=== PATIENT | male | born 1955 | race Caucasian/White ===

== ENCOUNTER 2020-01-16 06:15 | Day surgery (SDC) | payer OTHER ==
[2020-01-11 12:07] LABS: Urine Appearance CLEAR; Urine Bilirubin NEGATIVE (NEG); Urine Blood NEGATIVE (NEG); Urine Color YELLOW; Urine Glucose 3+ (NEG); Urine Protein NEGATIVE (NEG); Urine Specific Gravity >=1.030 (1.005-1.030); Urine Urobilinogen 0.2 mg/dL (0.2-1.0)
[2020-01-11 12:09] LABS: Urine Microscopic Reflex NO UMIC
[2020-01-11 12:13] LABS: Protime INR 0.92
[2020-01-11 12:28] LABS: Albumin 3.8 g/dL (3.4-5.0); Bilirubin Total 0.7 mg/dL (0.2-1.0); Potassium 4.3 mmol/L (3.5-5.1); Protein, Total 7.6 g/dL (6.4-8.2)
[2020-01-11 12:29] LABS: Absolute Lymphocytes (CBC) 1.9 K/uL (0.7-4.9); Basophils % 0.8 % (0-1.3); Hematocrit 46.6 % (39.6-49.0); MPV 9.1 fL (7.6-11.3); RBC Red Blood Cell Count 5.23 M/uL (4.33-5.43)
--- OUTSIDE RECORDS SUMMARY | 2020-01-16 06:27 | XMS REPORT ---
:1955 Author Organization eClinicalWorks Care Team Providers Name Role Phone Roxi Wright Provider Role Unavailable Allergies, Adverse Reactions, Alerts Substance Reaction Event Type N.K.D.A. Info Not Available Non Drug Allergy Problems Problem Type Condition Code Onset Dates Condition Statu s Assessment Phimosis of penis N47.1 Active Problem Balanitis N48.1 Active Assessment Balanitis N48.1 Active Assessment Screening PSA (prostate specific Z12.5 Active antigen) Assessment Redundant foreskin N47.8 Active Medications Medication Code Code Instructions Start End Status Dosage System Date Date Atorvastatin [facility] 22855614160 40 MG Orally Active 1 tablet Calcium Once a day Brilinta ND 96653709954 90 MG Orally Active 1 tabl et Twice a day Losartan ND 65208144189 100 MG Orally Active 1 tab let Potassium Once a day Metoprolol ND 84486786706 25 MG Orally Active 1 ca psule Succinate Once a day Metformin HCl ND 18819802498 1000 MG Orally Active 1 tablet Once a day with a meal -81 NDC 0 Active not defined Results No Known Results Summary Purpose eClinicalWorks Submission
--- OUTSIDE RECORDS SUMMARY | 2020-01-16 06:27 | XMS REPORT | Continuity of Care Document ---
:1955 Author Organization [facility] t Address [address] [place] [address] Care Team Providers Name Role Phone Unavailable Unavailable Unavailable Payers Payer Name Policy Type Policy Number Effective Date Expiration Date S ource Problems Condition Condition Condition Status Onset Resolution Last Treating Co mments Source Name Details Category Date Date Treatment Clinician Date Balanitis Balanitis Problem Active [facility] Allergies, Adverse Reactions, Alerts Allergy Allergy Status Severity Reaction(s) Onset Inactive Treating Comm ents Source Name Type Date Date Clinician No Known DA Active U 2018-07 [facility] 08-13 [facility]: [facility] Medications Ordered Filled Start Stop Current Ordering Indication Dosage Frequency Signature Comments Components Source Medication Medication Date Date Medication? Clinician (SIG) Name Name Nino Oneill Yes Roxi [address] [facility] [place] [facility] Atorvastati Atorvastati Yes Roxi [address] [facility] n Calcium n Calcium [facility] Aspir-81 Aspir-81 Yes Roxi not [facility] Metformin Metformin Yes Roxi [address] [facility] [address] HCl HCl [place] [facility] a [facility] Losartan Losartan Yes Roxi [address] Potassium Potassium [facility] Metoprolol Metoprolol Yes Roxi [address] [address] Succinate Succinate [facility] Asprin Ec Asprin Ec No 1 Q1D Asprin Ec [place] Low Dose 81 Low Dose 81 Low Dose da mg mg 81 mg Medical tablet,mindy tablet,mindy tablet,del Group yed release yed release ayed Take 1 Take 1 release tablet tablet Take 1 every day every day tablet by oral by oral every day route. route. by oral route. atorvastati atorvastati No 1 Q1D atorvastat [place] n 40 mg n 40 mg in 40 mg da tablet Take tablet Take tablet Medical 1 tablet 1 tablet Take 1 Group every day every day tablet by oral by oral every day route. route. by oral route. Brilinta 90 Brilinta 90 No 1 Q1D Brilinta [place] mg tablet mg tablet 90 mg da Take 1 Take 1 tablet Medical tablet tablet Take 1 Group every day every day tablet by oral by oral every day route. route. by oral route. losartan losartan No 1 Q1D losartan [place] 100 mg 100 mg 100 mg da tablet Take tablet Take tablet Medical 1 tablet 1 tablet Take 1 Group every day every day tablet by oral by oral every day route. route. by oral route. metoprolol metoprolol No metoprolol [place] succinate succinate succinate da 25 mg take 25 mg take 25 mg take Medical once a day once a day once a day Group Vital Signs Vital Name Observation Time Observation Value Comments Source BP Diastolic 2018-06-17 00:00:00 94 mm[Hg] [facility] Height 2018-06-17 00:00:00 5.1 [in_i] [facility] BMI (Body Mass 2018-06-17 00:00:00 7492.1 kg/m2 [facility] Medical Index) Group BP Systolic 2018-06-17 00:00:00 162 mm[Hg] [facility] Body Weight 2018-06-17 00:00:00 277 [lb_av] [facility] Procedures Procedure Date / Time Performed Performing Clinician Valerie rueda US, renal 2018-06-17 00:00:00 Riccardo Yun Plan of Care Planned Activity Planned Date Details Comments Source Diagnostic Test 2018-06-17 urinalysis, dipstick Rubin connor [facility] Pending 00:00:00 [code = urinalysis, Group dipstick] Diagnostic Test 2018-06-17 cytology, urine [code [facility] Pending 00:00:00 = cytology, urine] Group Diagnostic Test 2018-06-17 culture, urine + [facility] Pending 00:00:00 sensitivity [code = Group culture, urine + sensitivity] Encounters Start End Encounter Admission Attending Care Care Encounter Source Date/Time Date/Time Type Type Clinicians Facility Department ID 2019-12-19 2019-12-19 [place] [id number] [facility] 15:10:00 15:10:00 t Specialty/U [facility] Outpat[facility] ent Clinics 2019-12-19 2019-12-19 [facility] [id number] [address] 09:00:00 09:00:00 t Specialty/U [facility] - [facility] l Clinic Outpati ent Clinics 2019-08-25 2019-08-25 [facility] [id number] [facility] [address] 14:39:00 14:39:00 t Specialty/U [facility] - [facility] l Clinic Outpati ent Clinics 2019-08-25 2019-08-25 [facility] [id number] [address] 08:00:00 08:00:00 t Specialty/U [facility] - [facility] 2018-06-17 2018-06-17 Art[facility] [place] - [id number] [facility] 00:00:00 00:00:00 Discovery sherice Wood MD: [address] [place] [address] Jamal Millard - [address], [place] [address] , Ph. Results Test Description Test Time Test Comments Results Result Comments Source CBC W/AUTO DIFF 2019-06-13 05:39:00 Test Item Value Reference Range Interpretation Comme nts WHITE BLOOD CELL (test code = WBC) 8.6 x10 3/uL 4.8-10.8 N RED BLOOD CELL (test code = RBC) 4.70 x10 6/uL 4.70-6.10 N HEMOGLOBIN (test code = HGB) 14.3 g/dL 14.5-20 L HEMATOCRIT (test code = HCT) 42.0 % 42.0-52.0 N MEAN CELL VOLUME (test code = MCV) 89.4 fL 80.0-94.0 N MEAN CELL HGB (test code = MCH) 30.4 pg 27-31 N MEAN CELL HGB CONCENTRATION (test code = MCHC) 34.0 G/DL 33-36.5 N RED CELL DISTRIBUTION WIDTH (test code = RDW) 12.0 % 12.9-16. 9 L PLATELET COUNT (test code = PLT) 180 150-440 N MEAN PLATELET VOLUME (test code = MPV) 10.6 fL 8.9-12.4 N NEUTROPHIL % (test code = NT%) 66.6 % 42.2-75.2 N LYMPHOCYTE % (test code = LY%) 22.7 % 20.5-51.1 N MONOCYTE % (test code = MO%) 8.5 % 1.7-9.3 N EOSINOPHIL % (test code = EO%) 1.4 % 0.0-7.0 N BASOPHIL % (test code = BA%) 0.6 % 0-2.5 N NEUTROPHIL # (test code = NT#) 5.69 x10 3/uL 1.80-7.70 N LYMPHOCYTE # (test code = LY#) 1.94 x10 3/uL 1.00-4.80 N MONOCYTE # (test code = MO#) 0.73 x10 3/uL 0.00-0.80 N EOSINOPHIL # (test code = EO#) 0.12 x10 3/uL 0.00-0.45 N BASOPHIL # (test code = BA#) 0.05 x10 3/uL 0.0-0.20 N BASIC METABOLIC [id number] 05:20:00 Test Item Value Reference Range Interpretation Comments SODIUM (test code 134 MMOL/L 136-143 L = NA) POTASSIUM (test 4.5 MMOL/L 3.5-5.1 N code = K) CHLORIDE (test 99 MMOL/L 98-107 N code = CL) CARBON DIOXIDE 25 mmol/L 24-31 N (test code = CO2) GLUCOSE (test code 247 mg/dL 70-104 H = GLU) BLOOD UREA 11.0 MG/DL 7.0-21.0 N NITROGEN (test code = BUN) GLOMERULAR >=60 max >60 The estimated FILTRATION RATE estimate glomerular (test code = GFR) filtration rate is computed usingpatient ra ce, age (>18), sex, and serum creatinin e. If anyof the neede d data elements a re missing the Laboratory alena ot compute an estimation of t he glomerular filtration rate . CREATININE (test 0.8 mg/dL 0.8-1.5 N code = CREAT) CALCIUM (test code 8.9 mg/dL 8.8-10.2 N = CA) [id number] 11:30:00 Test Item Value Reference Range Interpretation Comments GLUBED (test code = GLUBED) 255 MG/DL 70-105 H COAGULATION TIME [id number] 08:59:00 Test Item Value Reference Range Interpretation Comments COAGULATION TIME ACTIVATED (test 252 SECONDS 74-137 H code = ACT) COAGULATION TIME [id number] 08:30:00 Test Item Value Reference Range Interpretation Comments COAGULATION TIME ACTIVATED (test 241 SECONDS 74-137 H code = ACT) BASIC METABOLIC [id number] 07:39:00 Test Item Value Reference Range Interpretation Comments SODIUM (test code 133 MMOL/L 136-143 L = NA) POTASSIUM (test 4.3 MMOL/L 3.5-5.1 N code = K) CHLORIDE (test 98 MMOL/L 98-107 N code = CL) CARBON DIOXIDE 23 mmol/L 24-31 L (test code = CO2) GLUCOSE (test code 275 mg/dL 70-104 H = GLU) BLOOD UREA 14.2 MG/DL 7.0-21.0 N NITROGEN (test code = BUN) GLOMERULAR >=60 max >60 The estimated FILTRATION RATE estimate glomerular (test code = GFR) filtration rate is computed usingpatient ra ce, age (>18), sex, and serum creatinin e. If anyof the neede d data elements a re missing the Laboratory alena ot compute an estimation of t he glomerular filtration rate . CREATININE (test 0.8 mg/dL 0.8-1.5 N code = CREAT) CALCIUM (test code 9.3 mg/dL 8.8-10.2 N = CA) CBC W/AUTO [id number] 07:08:00 Test Item Value Reference Range Interpretation Comments WHITE BLOOD CELL (test code = 8.2 x10 3/uL 4.8-10.8 N WBC) RED BLOOD CELL (test code = 4.95 x10 6/uL 4.70-6.10 N RBC) HEMOGLOBIN (test code = HGB) 14.9 g/dL 14.5-20 N HEMATOCRIT (test code = HCT) 43.8 % 42.0-52.0 N MEAN CELL VOLUME (test code = 88.5 fL 80.0-94.0 N MCV) MEAN CELL HGB (test code = MCH) 30.1 pg 27-31 N MEAN CELL HGB CONCENTRATION 34.0 G/DL 33-36.5 N (test code = MCHC) RED CELL DISTRIBUTION WIDTH 12.1 % 12.9-16.9 L (test code = RDW) PLATELET COUNT (test code = 191 150-440 N PLT) MEAN PLATELET VOLUME (test code 10.4 fL 8.9-12.4 N = MPV) NEUTROPHIL % (test code = NT%) 67.4 % 42.2-75.2 N LYMPHOCYTE % (test code = LY%) 22.8 % 20.5-51.1 N MONOCYTE % (test code = MO%) 6.9 % 1.7-9.3 N EOSINOPHIL % (test code = EO%) 2.2 % 0.0-7.0 N BASOPHIL % (test code = BA%) 0.5 % 0-2.5 N NEUTROPHIL # (test code = NT#) 5.51 x10 3/uL 1.80-7.70 N LYMPHOCYTE # (test code = LY#) 1.86 x10 3/uL 1.00-4.80 N MONOCYTE # (test code = MO#) 0.56 x10 3/uL 0.00-0.80 N EOSINOPHIL # (test code = EO#) 0.18 x10 3/uL 0.00-0.45 N BASOPHIL # (test code = BA#) 0.04 x10 3/uL 0.0-0.20 N
--- OUTSIDE RECORDS SUMMARY | 2020-01-16 06:27 | XMS REPORT ---
:1955 Author Organization eClinicalWorks Care Team Providers Name Role Phone Roxi Wright Provider Role Unavailable Allergies No Known Allergies Problems Problem Type Condition Code Onset Dates Condition Statu s Problem Balanitis N48.1 Active Medications No Known Medications Results No Known Results Summary Purpose eClinicalWorks Submission
[2020-01-16] MEDS ORDERED: NA CHLORIDE 0.9% 1,000 ML ONE ×2 (06:50→09:35)
[2020-01-16] MEDS ORDERED: FENTANYL CITR 100 MCG/2 ML ONE ×2 (07:16→08:12)
[2020-01-16] MEDS ORDERED: MIDAZOLAM HCL 2 MG/2 ML INJ ONE (07:16)
[2020-01-16] MEDS ORDERED: propofoL 200 MG/20 ML VIAL IV ONE (07:16)
[2020-01-16] MEDS ORDERED: dexAMETHasone 10 MG/ML VIAL ONE ×2 (07:16→07:17)
[2020-01-16] MEDS ORDERED: LIDOCAINE 2% MPF 5 ML VIAL ONE (07:17)
[2020-01-16] MEDS ORDERED: BACITRACIN OINTMENT 15 GM TUBE TOP ONE (07:20)
[2020-01-16] MEDS ORDERED: BUPIVACAINE 0.25% PF 10 ML VIAL ONE (07:20)
[2020-01-16] MEDS: CEFTRIAXONE/SWI 1gm 1 GM/10 ML SYR IV SCH ×2 (07:30→07:40)
[2020-01-16] MEDS ORDERED: INSULIN -REGULAR HUMAN 50 UNIT/0.5 ML ML ONE ×2 (07:30→09:33)
[2020-01-16] MEDS ORDERED: KETOROLAC 30 MG/ML INJ ONE (08:43)
[2020-01-16] MEDS ORDERED: ONDANSETRON 4 MG/2 ML VIAL ONE (09:32)
[2020-01-16 10:13] VITALS: TEMP 97.1
[2020-01-16 11:14] VITALS: BP 107/62; O2SAT 97
== END 2020-01-16 10:50 | disposition home or self-care (01) ==
LOC: OR 06:15
PROVIDERS: ATTEND Internal Medicine Hematology & Oncology
PROC: 0VTTXZZ Resection of Prepuce, External Approach (ICD-10-PCS; principal; 2020-01-16 07:30)
DX: N47.1 Phimosis (principal); N47.8 Other disorders of prepuce; N48.1 Balanitis; E11.9 Type 2 diabetes mellitus without complications; I10 Essential (primary) hypertension; I25.10 Atherosclerotic heart disease of native coronary artery without angina pectoris; Z11.59 Encounter for screening for other viral diseases; Z79.82 Long term (current) use of aspirin; Z79.02 Long term (current) use of antithrombotics/antiplatelets; Z95.5 Presence of coronary angioplasty implant and graft
CPT/HCPCS: 93005; 85025; 36415; 85610; 82947 ×2; 88304; 85730; 81003; 83036; 80053; 54161; U0002; J2704; J2250; J3010 ×2; J1100; J0696; J7030 ×2; J2405

== ENCOUNTER 2021-02-06 21:14 | Emergency (ER) | payer OTHER ==
--- OUTSIDE RECORDS SUMMARY | 2021-02-06 21:18 | XMS REPORT | Continuity of Care Document ---
:1955 Author Organization [facility] t Address [address] [place] [address] Care Team Providers Name Role Phone Unavailable Unavailable Unavailable Payers Payer Name Policy Type Policy Number Effective Date Expiration Date S ource Problems Condition Condition Condition Status Onset Resolution Last Treating Co mments Source Name Details Category Date Date Treatment Clinician Date Balanitis Balanitis Diagnosis Active [facility] Phimosis Phimosis Diagnosis Active [facility] Screening Screening Diagnosis Active [facility] PSA PSA [facility] - (prostate (prostate Sukhdev nikos specific specific l antigen) antigen) Outpat i ent Clinics Redundant Redundant Diagnosis Active [facility] foreskin foreskin [facility] Allergies, Adverse Reactions, Alerts Allergy Allergy Status Severity Reaction(s) Onset Inactive Treating Comm ents Source Name Type Date Date Clinician No Known DA Active U 2018-07 [facility] Allergie 08-13 [facility] 00:00: [facility] Medications Ordered Filled Start Stop Current Ordering Indication Dosage Frequency Signature Comments Components Source Medication Medication Date Date Medication? Clinician (SIG) Name Name Asprin Ec Asprin Ec No 1 Q1D Asprin Ec [place] Low Dose 81 Low Dose 81 Low Dose da mg mg 81 mg Medical tablet,mindy tablet,mindy tablet,del Group yed release yed release ayed Take 1 Take 1 release tablet tablet Take 1 every day every day tablet by oral by oral every day route. route. by oral route. Brilinta Brilinta Yes Roxi [address] [facility] atorvastati atorvastati No 1 Q1D atorvastat [place] n 40 mg n 40 mg in 40 mg da tablet Take tablet Take tablet Medical 1 tablet 1 tablet Take 1 Group every day every day tablet by oral by oral every day route. route. by oral route. Atorvastati Atorvastati Yes Roxi [address] n Calcium n Calcium Adriana L [facility] Brilinta 90 Brilinta 90 No 1 Q1D Brilinta [place] mg tablet mg tablet 90 mg da Take 1 Take 1 tablet Medical tablet tablet Take 1 Group every day every day tablet by oral by oral every day route. route. by oral route. Aspir-81 Yes Roxi not [facility] [place] defined [facility] losartan losartan No 1 Q1D losartan [place] 100 mg 100 mg 100 mg da tablet Take tablet Take tablet Medical 1 tablet 1 tablet Take 1 Group every day every day tablet by oral by oral every day route. route. by oral route. Metformin Metformin Yes Roxi [address] HCl HCl [place] [facility] metoprolol metoprolol No metoprolol [place] succinate succinate succinate da 25 mg take 25 mg take 25 mg take Medical once a day once a day once a day Group Losartan Losartan Yes Roxi [address] [facility]assium [facility] Met[facility]ol Metoprolol Yes Roxi [address] Succinate Succinate [facility] Vital Signs Vital Name Observation Time Observation Value Comments Source BP Diastolic 2018-06-17 00:00:00 94 mm[Hg] [facility] Height 2018-06-17 00:00:00 5.1 [in_i] [facility] BMI (Body Mass 2018-06-17 00:00:00 7492.1 kg/m2 [facility] Medical Index) Group BP Systolic 2018-06-17 00:00:00 162 mm[Hg] [facility] Body Weight 2018-06-17 00:00:00 277 [lb_av] [facility] Procedures Procedure Date / Time Performed Performing Clinician [facility] e US, renal 2018-06-17 00:00:00 [place] [facility] Plan of Care Planned Activity Planned Date Details Comments Source Diagnostic Test 2018-06-17 urinalysis, dipstick [facility] Pending 00:00:00 [code = urinalysis, Group dipstick] Diagnostic Test 2018-06-17 cytology, urine [code [facility] Pending 00:00:00 = cytology, urine] Group Diagnostic Test 2018-06-17 culture, urine + [facility] Pending 00:00:00 sensitivity [code = Group culture, urine + sensitivity] Encounters Start End Encounter Admission Attending Care Care Encounter Source Date/Time Date/Time Type Type Clinicians Facility Department ID 2020-02-12 2020-02-12 Outpatient Jennifer Rodriguezt [id number] [facility] 09:15:00 09:15:00 t Specialty/U [facility] kes - [facility] 2020-01-29 2020-01-29 Outpatient [place] [facility] [id number] [facility] 13:00:00 13:00:00 t Specialty/U Destinee kes - [facility] 2019-12-19 2019-12-19 [facility] [id number] [facility] 15:10:00 15:10:00 t Specialty/U Destinee kes - Specialty [facility]y [facility] 2019-12-19 2019-12-19 Outpatient [facility] [id number] [facility] 09:00:00 09:00:00 t Specialty/U Destinee kes - Specialty rology [facility] /Urology Clinic l Clinic Outpati ent Clinics 2019-08-25 2019-08-25 [place] [facility] [place] [id number] [facility] 14:39:00 14:39:00 t Specialty/U Destinee kes - Specialty rology [facility] 2019-08-25 2019-08-25 [place] [id number] 08:00:00 08:00:00 t Specialty/U Destinee kes - Specialty rology [facility] 2018-06-17 2018-06-17 Arturo JOHNSON [place] - [id number] [facility] 00:00:00 00:00:00 Discovery sherice Wood MD: [address] [place] [address] [facility] - [address], [place] [address] , Ph. Results Test Description Test Time [...] 0.05 x10 3/uL 0.0-0.20 N BASIC METABOLIC [id number] 05:20:00 Test Item Value Reference Range Interpretation [...] code 8.9 mg/dL 8.8-10.2 N = CA) [id number] 11:30:00 Test Item Value Reference Range Interpretation Comments GLUBED (test code = GLUBED) 255 MG/DL 70-105 H COAGULATION TIME [id number] 08:59:00 Test Item Value Reference Range Interpretation Comments COAGULATION TIME ACTIVATED (test 252 SECONDS 74-137 H code = ACT) COAGULATION TIME [id number] 08:30:00 Test Item Value Reference Range Interpretation Comments COAGULATION TIME ACTIVATED (test 241 SECONDS 74-137 H code = ACT) BASIC METABOLIC [id number] 07:39:00 Test Item Value Reference Range Interpretation [...] mg/dL 8.8-10.2 N = CA) CBC W/AUTO [id number] 07:08:00 Test Item Value Reference Range Interpretation [...]
[2021-02-07 01:50] LABS: Absolute Lymphocytes (CBC) 1.2 K/uL (0.7-4.9); Basophils % 0.8 % (0-1.3); Hematocrit 43.9 % (39.6-49.0); Lymphocytes % 16.4 % (15.3-44.8); MPV 8.7 fL (7.6-11.3); RBC Red Blood Cell Count 4.91 M/uL (4.33-5.43)
[2021-02-07 01:56] LABS: Protime INR 1.15
[2021-02-07 02:28] LABS: Bilirubin Direct 0.4 mg/dL (0-0.2); Bilirubin Total 1.2 mg/dL (0.2-1.0); C-Reactive Protein 89.3 mg/L (<3.00); Ferritin 817.2 ng/mL (26-388); Magnesium 1.8 mg/dL (1.8-2.4); Potassium 3.8 mmol/L (3.5-5.1); Protein, Total 6.9 g/dL (6.4-8.2); Troponin (Emerg Dept Use Only) 0.02 ng/mL (0.0-0.045)
[2021-02-07] MEDS ORDERED: ACETAMINOPHEN 500 MG TAB ONE (02:38)
[2021-02-07] MEDS ORDERED: DIPHENOX/ATROP SULF 1 TAB PO ONE (03:19)
--- NOTE | 2021-02-07 04:15 | EDPHYS ---
Physician Documentation [facility] Name: Rachid Bagley Age: 65 yrs Sex: Male : 1955 Arrival Date: 02/06/2021 Time: 21:20 Bed 10 Private MD: ED Physician Naldo Ontiveros HPI: 02/07 01:15 This 65 yrs old Male presents to ER via Ambulatory with complaints of cp Productive Cough, Fever. 01:15 The patient or guardian reports cough, that is constant, with no sputum, difficulty cp breathing. 01:15 The patient presents to the emergency department with diarrhea, that is continuous. cp Possible causes: antibiotics, prescribed by PCP for cough/congestion. Onset: The symptoms/episode began/occurred 1 week(s) ago. Severity of symptoms: in the emergency department the symptoms are unchanged, despite home interventions. Associated signs and symptoms: Pertinent positives: fever, Pertinent negatives: abdominal pain, constipation, dysuria, GI bleeding, vomiting. Historical: - Allergies: 02/06 22:10 No Known Allergies; ca1 - PMHx: 22:10 Hypertensive disorder; Hypercholesterolemia; Diabetes mellitus; CAD; ca1 - PSHx: 22:10 stents; ca1 - Immunization history:: Client reports having NOT received the Covid vaccine. - Social history:: Smoking status: Patient denies any tobacco usage or history of. ROS: 02/07 01:20 Constitutional: Positive for body aches, poor PO intake, Negative for fever. cp 01:20 Eyes: Negative for injury, pain, redness, and discharge. cp 01:20 ENT: Negative for ear pain, difficulty swallowing, difficulty handling secretions. 01:20 Cardiovascular: Negative for chest pain, edema, palpitations. 01:20 Respiratory: Positive for cough, "sounds productive", shortness of breath. 01:20 Abdomen/GI: Positive for nausea, diarrhea, anorexia, Negative for abdominal pain, vomiting, constipation, black/tarry stool, rectal bleeding. 01:20 : Negative for urinary symptoms. 01:20 Neuro: Positive for weakness, Negative for altered mental status, headache, syncope. 01:20 All other systems are negative. Exam: 01:25 Head/Face: Normocephalic, atraumatic. cp 01:25 Constitutional: The patient appears in no acute distress, alert, awake, non-diaphoretic, non-toxic, well developed, well nourished, obviously ill. 01:25 Eyes: Periorbital structures: appear normal, Conjunctiva: normal, no exudate, no injection, Sclera: no appreciated abnormality, Lids and lashes: appear normal, bilaterally. 01:25 Neck: ROM/movement: is normal, is supple, no meningismus, no nuchal rigidity. 01:25 Chest/axilla: Inspection: normal, Palpation: is normal, no crepitus, no tenderness. 01:25 Cardiovascular: Rate: tachycardic, Rhythm: regular, Edema: is not appreciated, JVD: is not appreciated. 01:25 Respiratory: the patient does not display signs of respiratory distress, Respirations: normal, no use of accessory muscles, no retractions, labored breathing, is not present, Breath sounds: bronchial sounds, that are mild, are heard diffusely, stridor, is not appreciated, wheezing: is not appreciated. 01:25 Abdomen/GI: Inspection: abdomen appears normal, Bowel sounds: active, all quadrants, Palpation: abdomen is soft and non-tender, in all quadrants, rebound tenderness, is not appreciated, involuntary guarding, is not appreciated. 01:25 Neuro: Orientation: to person, place \\T\\ time. Mentation: is normal, Cerebellar function: is grossly normal, Motor: moves all fours, strength is normal, Sensation: is normal. 01:25 ENT: External ear(s): are unremarkable, Ear canal(s): are normal, clear, TM's: cp dullness, bilaterally, Nose: is normal, Mouth: Lips: dry, Oral mucosa: pink and intact, moist, Posterior pharynx: Airway: no evidence of obstruction, patent, Tonsils: are normal in appearance, swelling, is not appreciated, erythema, is not appreciated, exudate, is not appreciated. 04:02 ECG was reviewed by the Attending Physician. cp Vital Signs: 02/06 22:08 BP 91 / 73; Pulse 102; Resp 19 S; Temp 98.8(TE); Pulse Ox 96% on R/A; Weight 102.06 kg ca1 (R); Height 5 ft. 10 in. (177.80 cm) (R); 02/07 01:18 BP 105 / 63; Pulse 105; Resp 24; Pulse Ox 94% on R/A; bs2 03:00 BP 118 / 78; Pulse 99; Resp 22; Pulse Ox 96% ; bs2 04:00 BP 128 / 76; Pulse 100; Resp 22; Temp 98.6; Pulse Ox 97% ; Pain 3/10; bs2 08 22:08 Body Mass Index 32.28 (102.06 kg, 177.80 cm) ca1 MDM: 00:59 Patient medically screened. cp 01:30 Differential Diagnosis: Bronchitis Influenza Pneumonia Other gastroenteritis, cp dehydration, electrolyte abnormality. 04:10 Data reviewed: vital signs, nurses notes, lab test result(s), EKG, radiologic studies, cp plain films. 04:10 Test interpretation: by ED physician or midlevel provider: ECG, plain radiologic cp studies. Counseling: I had a detailed discussion with the patient and/or guardian regarding: the historical points, exam findings, and any diagnostic results supporting the discharge/admit diagnosis, lab results, radiology results, to return to the emergency department if symptoms worsen or persist or if there are any questions or concerns that arise at home. Response to treatment: the patient's symptoms have markedly improved after treatment, and as a result, I will discharge patient. 02/06 22:12 Order name: Flu; Complete Time: 01:09 ca1 02/06 23:53 Order name: SARS-COV-2 RT PCR; Complete Time: 01:09 EDMS 02/07 01:09 Interpretation: Abnormal: SARSCOV2 RT PCR POSITIVE. cp 02/07 01:10 Order name: Basic Metabolic Panel cp 02/07 01:10 Order name: CBC with Diff; Complete Time: 02:11 cp 02/07 02:11 Interpretation: Normal except: PLT 148. cp 02/07 01:10 Order name: LFT's; Complete Time: 02:30 cp 02/07 02:30 Interpretation: Normal except: BILIT 1.2; BILID 0.4; ALB 3.0; GLOB 3.9; A/G 0.8. cp 02/06 22:12 Order name: Chest Pa And Lat (2 Views) XRAY ca1 02/07 01:10 Order name: Magnesium; Complete Time: 02:30 cp 02/07 01:10 Order name: NT PRO-BNP; Complete Time: 02:30 cp 02/07 02:33 Interpretation: Abnormal: NT PRO-BNP 153. cp 02/07 01:10 Order name: PT-INR; Complete Time: 02:11 cp 02/07 02:11 Interpretation: Abnormal: INR <p>1.15</p>. cp / 01:10 Order name: Troponin (emerg Dept Use Only); Complete Time: 02:30 cp 02/07 01:11 Order name: Basic Metabolic Panel; Complete Time: 02:30 EDMS 08 02:30 Interpretation: Normal except: NA 129; CL 96; GLUC 290; BUN 21; CRE 1.57; GFR 45; CA cp 8.3. 02/07 01:11 Order name: CRP; Complete Time: 02:30 cp 02/07 02:32 Interpretation: Abnormal: C-REACTIVE PROT 89.30. cp 02/07 01:11 Order name: Ferritin; Complete Time: 02:30 cp 02/07 02:32 Interpretation: Abnormal: LAYNE 817.2. cp 02/07 01:10 Order name: EKG; Complete Time: 01:11 cp 02/07 01:10 Order name: Cardiac monitoring; Complete Time: 01:41 cp 02/07 01:10 Order name: EKG - Nurse/Tech; Complete Time: 01:41 cp 02/07 01:10 Order name: IV Saline Lock; Complete Time: 01:41 cp 02/07 01:10 Order name: Labs collected and sent; Complete Time: 01:41 cp 02/07 01:10 Order name: O2 Per Protocol; Complete Time: 01:41 cp 02/07 01:10 Order name: O2 Sat Monitoring; Complete Time: 01:41 cp EC:02 Rate is 82 beats/min. Rhythm is regular. LA interval is prolonged at 228 msec. QRS cp interval is normal. QT interval is normal. T waves are Inverted in leads aVL, aVR. Interpreted by me. Reviewed by me. Administered Medications: 02:00 Drug: NS 0.9% 500 ml Route: IV; Rate: bolus; Site: right antecubital; bs2 05:04 Follow up: IV Status: Completed infusion bs2 02:00 Drug: Zofran (Ondansetron) 4 mg Route: IVP; Site: right antecubital; bs2 03:13 Follow up: Response: No adverse reaction bs2 02:00 Drug: Tessalon Perle (benzonatate) 200 mg Route: PO; bs2 03:13 Follow up: Response: No adverse reaction bs2 02:00 Drug: SOLU-Medrol (methylPrednisoLONE) 125 mg Route: IVP; Site: right antecubital; bs2 03:13 Follow up: Response: No adverse reaction bs2 02:00 Drug: Tylenol 1000 mg Route: PO; bs2 03:13 Follow up: Response: No adverse reaction bs2 02:13 CANCELLED (Physician Discretion): Ibuprofen 800 mg PO once cp 03:13 Drug: LoMOTIL (diphenoxylate-atropine) 2 tabs Route: PO; bs2 03:14 Follow up: Response: No adverse reaction bs2 Disposition: 05:34 Co-signature as Attending Physician, Naldo Ontiveros MD. [email or web address] Disposition Summary: 02/07/21 04:15 Discharge Ordered Location: Home cp Problem: new cp Symptoms: have improved cp Condition: Stable cp Diagnosis - Diarrhea, unspecified cp - Dehydration cp - SARS-associated coronavirus as the cause of diseases classified elsewhere cp - Other viral pneumonia cp Followup: cp - With: Private Physician - When: 2 - 3 days - Reason: Worsening of condition Discharge Instructions: - Discharge Summary Sheet cp - Food Choices to Help Relieve Diarrhea, Adult cp - Diarrhea, Adult cp - COVID-19 cp - 10 Things You Can Do to Manage Your COVID-19 Symptoms at Home - [facility] [place] cp - COVID-19: Quarantine vs. Isolation - [facility] [place] cp - Prevent the Spread of COVID-19 if You Are Sick - [facility] [place] cp Forms: - Medication Reconciliation Form cp - Thank You Letter cp - Antibiotic Education cp - Prescription Opioid Use cp Prescriptions: - albuterol sulfate 90 mcg/actuation Inhalation HFA aerosol inhaler - inhale 2 puff by INHALATION route every 4-6 hours; 1 Inhaler; Refills: 0, cp Product Selection Permitted - Zofran 4 mg Oral Tablet - take 1 tablet by ORAL route every 12 hours As needed; 20 tablet; Refills: 0, cp Product Selection Permitted - Tessalon Perles 100 mg Oral Capsule - take 2 capsule by ORAL route every 8 hours As needed; 30 capsule; Refills: 0, cp Product Selection Permitted - Prednisone 20 mg Oral Tablet - take 2 tablets by ORAL route once daily for 5 days then take 1 tablet daily for cp 5 days; 15 tablet; Refills: 0, Product Selection Permitted Signatures: Dispatcher [employer] EDMS Koffi Nieves PA PA cp Dafne Peralta RN RN ca1 Naldo Ontiveros MD MD mh7 Tatyana Woods RN RN bs2 Corrections: (The following items were deleted from the chart) 02/06 22:45 22:12 CORONAVIRUS+ ordered. EDMS EDMS 02/07 02:13 02:11 Ibuprofen 800 mg PO once ordered. cp cp 23:20 01:13 Constitutional: The patient appears in no acute distress, alert, awake, cp non-diaphoretic, non-toxic, well developed, well nourished, obviously ill, cp 23:20 01:13 Head/Face: Normocephalic, atraumatic. cp cp 23:20 01:13 Eyes: Periorbital structures: appear normal, Conjunctiva: normal, no exudate, no cp injection, Sclera: no appreciated abnormality, Lids and lashes: appear normal, bilaterally, cp 23:20 01:13 ENT: External ear(s): are unremarkable, Ear canal(s): are normal, clear, TM's: cp dullness, bilaterally, Nose: is normal, Mouth: Lips: dry, Oral mucosa: pink and intact, moist, Posterior pharynx: Airway: no evidence of obstruction, patent, Tonsils: are normal in appearance, swelling, is not appreciated, erythema, is not appreciated, exudate, is not appreciated, cp 23:20 01:13 Neck: ROM/movement: is normal, is supple, no meningismus, no nuchal rigidity, cp cp 23:20 01:13 Chest/axilla: Inspection: normal, Palpation: is normal, no crepitus, no cp tenderness, cp 23:20 01:13 Cardiovascular: Rate: tachycardic, Rhythm: regular, Edema: is not appreciated, cp JVD: is not appreciated, cp 23:20 01:13 Respiratory: the patient does not display signs of respiratory distress, cp Respirations: normal, no use of accessory muscles, no retractions, labored breathing, is not present, Breath sounds: bronchial sounds, that are mild, are heard diffusely, stridor, is not appreciated, wheezing: is not appreciated, cp 23:20 01:13 Abdomen/GI: Inspection: abdomen appears normal, Bowel sounds: active, all cp quadrants, Palpation: abdomen is soft and non-tender, in all quadrants, rebound tenderness, is not appreciated, involuntary guarding, is not appreciated, cp 23:20 01:13 Neuro: Orientation: to person, place \\T\\ time. Mentation: is normal, Cerebellar cp function: is grossly normal, Motor: moves all fours, strength is normal, Sensation: is normal, cp
--- NOTE | 2021-02-07 04:15 | ER ---
Nurse's Notes [facility] Name: Rachid Bagley Age: 65 yrs Sex: Male : 1955 Arrival Date: 02/06/2021 Time: 21:20 Bed 10 Private MD: Diagnosis: Diarrhea, unspecified;Dehydration;SARS-associated coronavirus as the cause of diseases classified elsewhere;Other viral pneumonia Presentation: 02/06 22:08 Chief complaint: Patient states: Productive cough, congestion, diarrhea, fever x 1 ca1 week. Coronavirus screen: Client denies travel out of the [place] in the last 14 days. congestion, cough unrelated to allergies, diarrhea, fever, Client presents with at least one sign or symptom that may indicate coronavirus-19. Standard/surgical mask placed on the client. Provider contacted for isolation considerations. Ebola Screen: Patient negative for fever greater than or equal to 101.5 degrees Fahrenheit, and additional compatible Ebola Virus Disease symptoms Patient denies exposure to infectious person. Patient denies travel to an Ebola-affected area in the 21 days before illness onset. No symptoms or risks identified at this time. Initial Sepsis Screen: Does the patient meet any 2 criteria? No. Patient's initial sepsis screen is negative. Does the patient have a suspected source of infection? No. Patient's initial sepsis screen is negative. Risk Assessment: Do you want to hurt yourself or someone else? Patient reports no desire to harm self or others. Onset of symptoms was February 06, 2021. 22:08 Method Of Arrival: Ambulatory ca1 22:08 Acuity: NORA 3 ca1 Triage Assessment: 02/07 01:15 General: Appears in no apparent distress. uncomfortable, obese, well groomed, well bs2 developed, well nourished. General: Behavior is calm, cooperative, appropriate for age. Respiratory: Reports shortness of breath on exertion cough that is non-productive, Onset: The symptoms/episode began/occurred. 04:57 Respiratory: the patient has mild shortness of breath. bs2 Historical: - Allergies: 02/06 22:10 No Known Allergies; ca1 - PMHx: 22:10 Hypertensive disorder; Hypercholesterolemia; Diabetes mellitus; CAD; ca1 - PSHx: 22:10 stents; ca1 - Immunization history:: Client reports having NOT received the Covid vaccine. - Social history:: Smoking status: Patient denies any tobacco usage or history of. Screenin/06 01:15 Abuse screen: Denies threats or abuse. Denies injuries from another. Nutritional bs2 screening: No deficits noted. Tuberculosis screening: No symptoms or risk factors identified. Fall Risk None identified. Assessment: 01:15 General: Appears in no apparent distress. uncomfortable, obese, well groomed, well bs2 developed, well nourished, Behavior is calm, cooperative, appropriate for age. Pain: Complains of pain in body aches Pain currently is 7 out of 10 on a pain scale. Cardiovascular: Rhythm is regular. Respiratory: Airway is patent Respiratory effort is even, unlabored, Breath sounds are clear Parent/caregiver reports the patient having shortness of breath on exertion. GI: No deficits noted. : No deficits noted. EENT: No deficits noted. Derm: No deficits noted. Vital Signs: 02/06 22:08 BP 91 / 73; Pulse 102; Resp 19 S; Temp 98.8(TE); Pulse Ox 96% on R/A; Weight 102.06 kg ca1 (R); Height 5 ft. 10 in. (177.80 cm) (R); 02/07 01:18 BP 105 / 63; Pulse 105; Resp 24; Pulse Ox 94% on R/A; bs2 03:00 BP 118 / 78; Pulse 99; Resp 22; Pulse Ox 96% ; bs2 04:00 BP 128 / 76; Pulse 100; Resp 22; Temp 98.6; Pulse Ox 97% ; Pain 3/10; bs2 02/06 22:08 Body Mass Index 32.28 (102.06 kg, 177.80 cm) ca1 ED Course: 02/06 21:20 Patient arrived in ED. cf2 22:10 Triage completed. ca1 22:10 Arm band placed on right wrist. ca1 22:37 Chest Pa And Lat (2 Views) XRAY In Process Unspecified. EDMS 02/07 00:51 Tatyana Woods, MARKIE is Primary Nurse. bs2 00:52 Koffi Nieves PA is PHCP. cp 00:52 Naldo Ontiveros MD is Attending Physician. cp 01:15 Patient has correct armband on for positive identification. Pulse ox on. NIBP on. Warm bs2 blanket given. 01:40 Inserted saline lock: 20 gauge in right antecubital area, using aseptic technique. bs2 01:41 Ferritin Sent. mw2 01:41 CRP Sent. mw2 01:41 Basic Metabolic Panel Sent. mw2 01:41 Troponin (emerg Dept Use Only) Sent. mw2 01:41 PT-INR Sent. mw2 01:41 NT PRO-BNP Sent. mw2 01:41 Magnesium Sent. mw2 01:41 LFT's Sent. mw2 01:41 CBC with Diff Sent. mw2 01:41 Basic Metabolic Panel Sent. mw2 05:00 No provider procedures requiring assistance completed. IV discontinued, intact, bs2 bleeding controlled, No redness/swelling at site. Administered Medications: 02:00 Drug: NS 0.9% 500 ml Route: IV; Rate: bolus; Site: right antecubital; bs2 05:04 Follow up: IV Status: Completed infusion bs2 02:00 Drug: Zofran (Ondansetron) 4 mg Route: IVP; Site: right antecubital; bs2 03:13 Follow up: Response: No adverse reaction bs2 02:00 Drug: Tessalon Perle (benzonatate) 200 mg Route: PO; bs2 03:13 Follow up: Response: No adverse reaction bs2 02:00 Drug: SOLU-Medrol (methylPrednisoLONE) 125 mg Route: IVP; Site: right antecubital; bs2 03:13 Follow up: Response: No adverse reaction bs2 02:00 Drug: Tylenol 1000 mg Route: PO; bs2 03:13 Follow up: Response: No adverse reaction bs2 02:13 CANCELLED (Physician Discretion): Ibuprofen 800 mg PO once cp 03:13 Drug: LoMOTIL (diphenoxylate-atropine) 2 tabs Route: PO; bs2 03:14 Follow up: Response: No adverse reaction bs2 Outcome: 04:15 Discharge ordered by MD. cp 04:58 Discharged to home ambulatory. bs2 04:58 Condition: improved 04:58 Discharge instructions given to patient, Instructed on discharge instructions, follow up and referral plans. medication usage, Demonstrated understanding of instructions, follow-up care, medications, Prescriptions given X 4. 05:04 Patient left the ED. bs2 Signatures: Dispatcher [employer] EDMS Koffi Nieves PA PA cp [place], MyKena mw2 Dafne Peralta RN RN ca1 Jonh Fisher cf2 Tatyana Woods, RN RN bs2
[2021-02-07 05:22] VITALS: BP 128/76; TEMP 98.6; O2SAT 97
--- NOTE | 2021-02-07 08:33 | RAD REPORT ---
EXAM DESCRIPTION: [place] And Lat (2 Views)02/06/2021 10:38 pm CLINICAL HISTORY: Cough COMPARISON: 2018 FINDINGS: Mild right pleural opacity unchanged probably thickening. Equivocal mild enlargement of a left pleural opacity mid to lower left hemithorax. Lungs appear clear of acute infiltrate. The heart is normal size IMPRESSION: Equivocal mild enlargement of a left pleural opacity. Follow-up chest film in 2 months r ecommended for re-evaluation.
--- NOTE | 2021-02-07 10:48 | EKG ---
Test Date: 2021-02-07 Test Time: 03:55:36 Chaplain: CONCEPCION MEASUREMENT RESULTS: Intervals: Rate: 82 [place]: 228 QRSD: 94 QT: 384 QTc: 448 [place]: P: 57 [place]: 228 QRS: 52 T: 78 INTERPRETIVE STATEMENTS: Sinus rhythm with 1st degree AV block Otherwise normal ECG Compared to ECG 11/15/2013 10:57:30 First degree AV block now present Electronically Signed On 02-07-21 10:48:03 CDT by Jason Naylor
== END 2021-02-07 05:04 | disposition home or self-care (01) ==
LOC: ER 21:14
DX: U07.1 COVID-19 (principal); J12.89 Other viral pneumonia; E86.0 Dehydration; R19.7 Diarrhea, unspecified; I10 Essential (primary) hypertension
CPT/HCPCS: 96361; 93005; 85025; 80048; 36415; 83735; 85610; 80076; 84484; 82728; 83880; 86140; 87804 ×2; 71046; 96375; 96374; 99284; U0003